=== PATIENT | male | born 1965 | race Caucasian/White ===

== ENCOUNTER 2018-01-03 10:48 | Day surgery (SDC) | payer OTHER ==
[2018-01-01 11:16] VITALS: BMI 27.3
[2018-01-03] MEDS ORDERED: BUPIVACAINE HCL/PF 2.5 MG/ML - 30 ML VIAL IJ ONE (10:57)
[2018-01-03] MEDS ORDERED: GLYCOPYRROLATE 0.2 MG/1 ML VIAL ONE (11:49)
[2018-01-03] MEDS ORDERED: MIDAZOLAM HCL 2 MG/2 ML SINGLE DOSE VIAL ONE (11:51)
[2018-01-03] MEDS ORDERED: LIDOCAINE HCL/PF 2% SDV 5ML VIAL ONE (11:52)
[2018-01-03] MEDS ORDERED: PROPOFOL 20 ML ONE (11:59)
[2018-01-03] MEDS ORDERED: KETOROLAC TROMETHAMINE 30 MG/1 ML VIAL ONE (12:21)
[2018-01-03] MEDS ORDERED: SUCCINYLCHOLINE CHLORIDE 200 MG/10 ML VIAL ONE (12:26)
--- NOTE | 2018-01-03 12:44 | OP ---
Operative Note - Note: Operative Date: 01/03/18 Pre-Operative Diagnosis: left knee med/lat meniscal tears Operation: left knee arthroscopy with partial med+lat meniscal debridement Post-Operative Diagnosis: Same as Pre-op Surgeon: Wade Martinez Anesthesiologist/MANAGER SOFTWARE: Luis M Perry Anesthesia: General Operative Report Dictated: Yes
[2018-01-03] MEDS ORDERED: ONDANSETRON 4 MG/2 ML VIAL ONE (13:23)
[2018-01-03] MEDS ORDERED: ONDANSETRON 4 MG/2 ML VIAL IVPUSH PRN (13:53)
[2018-01-03] MEDS ORDERED: oxyCODONE HCL 5 MG TABLET PO PRN ×2 (13:53)
[2018-01-03] MEDS ORDERED: LACTATED RINGERS SOLUTION 1,000 ML IV SCH (14:00)
[2018-01-03 14:04] VITALS: TEMP 97.7
--- NOTE | 2018-01-03 14:12 | OP ---
DATE OF OPERATION: 01/03/2018 PREOPERATIVE DIAGNOSIS: Left knee medial and lateral meniscal tears. POSTOPERATIVE DIAGNOSIS: Left knee medial and lateral meniscal tears. PROCEDURE: Left knee arthroscopy with partial medial, partial lateral meniscectomies. SURGEON: Wade Martinez MD ANESTHESIA: General. POSTOPERATIVE CONDITION: Stable. COMPLICATIONS: None. BLOOD LOSS: Minimal. INDICATIONS: This is a pleasant gentleman who has been suffered from medial and lateral knee pain. MRI demonstrated meniscal tearing. Treatment options including nonoperative versus operative management were reviewed. Operative risks were reviewed in detail including bleeding, infection, neurovascular injury, need for further surgery, postoperative pain or stiffness, progressive osteoarthritis. We discussed medical risks such as heart attack, stroke, DVT, PE, and . I addressed the patients questions and concerns. He voiced understanding and elected to proceed. DESCRIPTION OF PROCEDURE: The patient was brought to the operating room where general anesthesia was administered. Examination of the left knee demonstrated full range of motion and good stability, but a moderate to large effusion. Lateral portal was now established, and the arthroscope was passed into the knee. The effusion was drained. The knee was then introduced with saline. The patellofemoral compartment was examined demonstrating slight fraying on the articular surface of the patella and some fissuring, though partial thickness, on the trochlea. The arthroscope was now passed down into the notch. Here, ACL and PCL were visualized to be intact. The medial portal was established under spinal needle localization. Examination of the medial compartment demonstrated some partial thickness chondral loss along the femoral and tibial sides. A complex tear was noted at the posterior horn of the medial meniscus extending into the body. It was a radial component which was lowest to the thickness about the region. Utilizing a combination meniscal shaver and a biter, this was debrided down to a stable base. The arthroscope was now passed into the lateral compartment. Here, there was some free edge tearing on the body of the meniscus and then an undersurface tear nearer to the posterior horn. Also utilizing a shaver as well as meniscal biter, this was debrided down to a stable base. There were minimal degenerative changes in the articular surface of the lateral compartment. At this point, the excess fluid was withdrawn from the joint. The portals were secured using 3-0 nylon. Sterile dressings were placed. The patient was extubated and transferred to the recovery room in stable condition. Vianey [id number]
[2018-01-03] MEDS ORDERED: oxyCODONE HCL 5 MG TABLET ONE (14:30)
[2018-01-03 14:58] VITALS: BP 137/74; PULSE 53
== END 2018-01-03 15:00 | disposition home or self-care (01) ==
LOC: FASU 10:48
PROVIDERS: ATTEND Orthopaedic Surgery Sports Medicine
PROC: 0SBD4ZZ Excision of Left Knee Joint, Percutaneous Endoscopic Approach (ICD-10-PCS; 2018-01-03)
PROC: 0SBD4ZZ Excision of Left Knee Joint, Percutaneous Endoscopic Approach (ICD-10-PCS; principal; 2018-01-03 12:07)
DX: S83.242A Other tear of medial meniscus, current injury, left knee, initial encounter (principal); S83.282A Other tear of lateral meniscus, current injury, left knee, initial encounter; X58.XXXA Exposure to other specified factors, initial encounter; Y93.9 Activity, unspecified; Y92.9 Unspecified place or not applicable
CPT/HCPCS: 94760